=== PATIENT | female | born 1960 | race Caucasian/White ===

== ENCOUNTER → 2017-10-20 | Outpatient (CLI) | payer BC, OTHER ==
[~2017-10-20] MED LIST: NOLVADEX20 MG OR
== END ==
LOC: RAD 07:21
DX: C50.912 Malignant neoplasm of unspecified site of left female breast (principal); Z17.0 Estrogen receptor positive status [ER+]

== ENCOUNTER → 2018-03-20 | Outpatient (CLI) | payer OTHER | LOC: CAT 06:44 | DX: Z13.6 Encounter for screening for cardiovascular disorders (principal); E78.00 Pure hypercholesterolemia, unspecified; I25.10 Atherosclerotic heart disease of native coronary artery without angina pectoris; Z82.49 Family history of ischemic heart disease and other diseases of the circulatory system ==